=== PATIENT | female | born 1975 | race Hispanic/Latino ===

== ENCOUNTER 2018-08-30 16:46 | Emergency (ER) | payer MEDICAID ==
--- NOTE | 2018-08-30 18:29 | C.PDOC ---
History Of Present Illness 42 year old female patient presents to the ER with c/o intermittent chest pain for x1 week. Pt reports chest feels like a sharp and stabbing sensation. Patient took Advil for pain that provided relief. Associated sx includes pain worse with deep breaths. Patient denies hx of asthma, DVT (+) tob use. (+) cough Time Seen by Provider: 08/30/18 18:10 Chief Complaint (Nursing): Chest Pain History Per: Patient History/Exam Limitations: no limitations Onset/Duration Of Symptoms: Days (x1 week) Current Symptoms Are (Timing): Still Present Quality: Sharp, Other (stabbing) Exacerbating Factors: Deep Breathing Past Medical History Reviewed: Historical Data, Nursing Documentation, Vital Signs Vital Signs: Last Vital Signs Temp 98.3 F 08/30/18 16:49 Pulse 74 08/30/18 16:49 Resp 22 08/30/18 16:49 BP 128/89 08/30/18 16:49 Pulse Ox 96 08/30/18 16:49 - [facility] Procedures TETANUS TOXOID ADMINIST (05/10/14) Family History: States: Unknown Family Hx - Social History Hx Tobacco Use: Yes Hx Alcohol Use: No Hx Substance Use: No - Immunization History Hx Tetanus Toxoid Vaccination: No Hx Influenza Vaccination: No Hx Pneumococcal Vaccination: No Review Of Systems Except As Marked, All Systems Reviewed And Found Negative. Cardiovascular: Positive for: Chest Pain (physically reproducible chest wall tenderness) Physical Exam - Physical Exam Appears: Non-toxic, No Acute Distress Skin: Normal Color, Warm, Dry Head: Atraumatic, Normacephalic Eye(s): bilateral: Normal Inspection, PERRL, EOMI Nose: Normal Oral Mucosa: Moist Chest: Symmetrical, Tenderness (physically reproducible chest wall tenderness) Cardiovascular: Rhythm Regular, No Murmur Respiratory: Normal Breath Sounds (with distant bs), No Rales, No Rhonchi, No Wheezing Gastrointestinal/Abdominal: Normal Exam, Soft, No Tenderness Extremity: Normal ROM (x4) Extremity: Bilateral: Atraumatic, Normal Color And Temperature Neurological/Psych: Oriented x3, Normal Speech ED Course And Treatment - Laboratory Results Result Diagrams: 08/30/18 18:30 08/30/18 18:30 ECG: Interpreted By Me, Viewed By Me ECG Rhythm: Sinus Rhythm ECG Interpretation: Normal, No Acute Changes Interpretation Of ECG: nml intervals, nml axis; non-specific T-wave changes Rate From EC O2 Sat by Pulse Oximetry: 96 (RA) Pulse Ox Interpretation: Normal - Other Rad Chest X-Ray: Read By Radiologist Interpretation: Accession No. : [id number]. Patient Name / ID : NAYAN HOGUE / [id number]. Exam Date : 08/30/2018 18:31:41 ( Approved ). Study Comment : Sex / Age : F / 42Y. Creator : Zana David MD. Dictator : Zana David MD. Database Security Administrator : Gate Cutter : Zana David MD. Approver2 : Report Date : 08/30/2018 18:41:25. My Comment : . Date of service: 08/30/2018. PROCEDURE: CHEST RADIOGRAPH, 1 VIEW. HISTORY: Cough, chest pain. COMPARISON: None available. FINDINGS: LUNGS: Clear. PLEURA: No pneumothorax or pleural fluid seen. CARDIOVASCULAR: Normal. OSSEOUS STRUCT URES: No significant abnormalities. VISUALIZED UPPER ABDOMEN: Normal. OTHER FINDINGS: None. IMPRESSION: No active disease. Medical Decision Making Medical Decision Making: Impression: musculoskeletal chest pain Plans: -- EKG -- chem labs -- blood work -- CXR -- toradol Reassess: musculoskeletal cp/bronchitis heart score - 0 patient with 2 negative troponin will discharge home to follow up with pmd within 2 days Disposition Counseled Patient/Family Regarding: Studies Performed, Diagnosis, Need For Followup, Rx Given - Disposition Referrals: Edwar Rincon MD [Staff Provider] - Disposition: HOME/ ROUTINE Disposition Time: 22:54 Condition: STABLE Additional Instructions: follow up with your doctor within 2 days call to make an appointment take pain medication as needed return to ER if symptoms worsens or progress Prescriptions: RX: Albuterol HFA [Ventolin HFA 90 mcg/actuation (8 g)] 2 puff IH [id number] #1 puff Azithromycin [Zithromax] 250 mg PO DAILY #4 tab Benzonatate [Tessalon Perles] 100 mg PO BID PRN #14 sgl PRN Reason: Cough Naproxen [Naprosyn] 500 mg PO BID PRN #16 tab PRN Reason: Pain, Moderate (4-7) Instructions: Acute Bronchitis, Costochondritis (DC) Forms: General Discharge Instructions, [facility] (Welsh), Work Excuse - Clinical Impression Clinical Impression: Chest wall pain, Bronchitis - Scribe Statement The provider has reviewed the documentation as recorded by the Tianna Sanchez Do Provider Attestation: All medical record entries made by the Tianna were at my direction and personally dictated by me. I have reviewed the chart and agree that the record accurately reflects my personal performance of the history, physical exam, medical decision making, and the department course for this patient. I have also personally directed, reviewed, and agree with the discharge instructions and disposition.
[2018-08-30 18:40] LABS: BASO # 0.1 K/uL (0.0-0.2); BASO % 0.5 % (0.0-2.0); EOS # 0.4 K/uL (0.0-0.7); HEMOGLOBIN 15.1 g/dL (11.0-16.0); LYMPH # 2.5 K/uL (1.0-4.3); LYMPH % 21.1 % (20.0-40.0); MEAN CELL VOLUME 96.6 fL (81.0-99.0); MEAN CORPUSCULAR HGB CONC 34.2 g/dL (33.0-37.0); MEAN PLATELET VOLUME 7.5 fL (7.2-11.7); MONO # 0.7 K/uL (0.0-0.8); MONO % 6.1 % (0.0-10.0); NEUT % 69.3 % (50.0-75.0); RBC 4.59 Mil/uL (3.80-5.20); RED CELL DISTRIBUTION WIDTH 13.5 % (11.5-14.5); WHITE BLOOD COUNT 11.6 K/uL (4.8-10.8)
--- NOTE | 2018-08-30 18:46 | RAD ---
Date of service: 08/30/2018 PROCEDURE: CHEST RADIOGRAPH, 1 VIEW HISTORY: Cough, chest pain. COMPARISON: None available. FINDINGS: LUNGS: Clear. PLEURA: No pneumothorax or pleural fluid seen. CARDIOVASCULAR: Normal. OSSEOUS STRUCTURES: No significant abnormalities. VISUALIZED UPPER ABDOMEN: Normal. OTHER FINDINGS: None. IMPRESSION: No active disease.
[2018-08-30 18:49] LABS: ALB/GLOB RATIO 1.4 (1.0-2.1); ALBUMIN 4.5 g/dL (3.5-5.0); ALT/SGPT 25 U/L (9-52); AST/SGOT 22 U/L (14-36); BLOOD UREA NITROGEN 7 mg/dL (7-17); CALCIUM 9.6 mg/dl (8.6-10.4); GFR NON-AFRICAN AMERICAN > 60
[2018-08-30 19:00] LABS: B-TYPE NATRIURETIC PEPTIDE 122 pg/mL (0-450)
[2018-08-30] MEDS ORDERED: Albuterol 0.083% Inhal Sol (2.5 mg/3 mL) UD INH STA (19:04)
[2018-08-30] MEDS ORDERED: guaiFENesin 100 mg/5 ml Syrup UD PO STA (23:06)
[2018-08-30 23:07] VITALS: RESP 20
[2018-08-30 23:08] VITALS: BP 114/69; PULSE 71; TEMP 98.6
[2018-08-30 23:10] VITALS: O2SAT 96
[2018-08-30] MEDS ORDERED: guaiFENesin 100 mg/5 ml Syrup UD ONE (23:11)
--- NOTE | 2018-09-02 20:44 | CARD ---
APPROVED REPORT Date of service: 08/30/2018 EKG Measurement Heart [id number] <Conclusion> Normal sinus rhythm Possible Left atrial enlargement Borderline ECG
== END 2018-08-30 23:15 | disposition home or self-care (01) ==
LOC: C.ER 16:46
DX: J40 Bronchitis, not specified as acute or chronic (principal); R07.89 Other chest pain; Z72.0 Tobacco use
CPT/HCPCS: 71045; 80053; 83880; 84484; 85025; 85378; 93005; 94640; 96374; 96375; 99285; J1885; J2405